=== PATIENT | male | born 1960 | race Caucasian/White ===

== ENCOUNTER 2017-02-19 20:00 | Emergency (ER) | payer MEDICAID ==
[2017-02-19 20:08] VITALS: RESP 18; TEMP 98.2
[2017-02-19] MEDS ORDERED: PROPARACAINE 0.5% 15 ML OPHT DROP ONE (20:10)
[2017-02-19] MEDS ORDERED: PROPARACAINE 0.5% 15 ML OPHT DROP OP ONE (20:13)
[2017-02-19] MEDS ORDERED: FLUORESCEIN SODIUM 1 MG STRIP OP ONE (20:15)
--- NOTE | 2017-02-19 20:20 | EDPHY ---
General - History Smoking Status: Heavy smoker Narrative: CHIEF COMPLAINT: Eye pain and redness HISTORY OF PRESENT ILLNESS: Patient was working with boxes today he thought he felt something pop up into the right eye. He kept doing he was doing an notice some gradual onset of pain and redness in the right eye. Moderate to severe discomfort and redness of the right eye. No changes in vision. No photophobia. Some associated pain in the left eye now. No history of autoimmune disease or sexually transmitted infections. No use of contacts or corrective lenses. No difficulty seeing. No diplopia. Symptoms are improving here in the emergency department. No other associated complaints or modifying factors. He is up-to-date on his tetanus. REVIEW OF SYSTEMS: Ten systems reviewed and are negative unless otherwise noted in the HPI PERTINENT MEDICAL HISTORY: EXAMINATION General Appearance: Alert, no distress Head: normocephalic, atraumatic Eyes: Pupils equal, round and reactive to light. There is moderate injection of the right conjunctiva. Minimal injection of the left conjunctiva. Visual freire intact. No hyphema. ENT, Mouth: Mucous membranes moist Neck: Normal inspection, supple, non-tender Respiratory: Lungs are clear to auscultation Skin: Warm and dry, no rash Extremities: Nontender, no pedal edema Psychiatric: Mood and affect normal SLIT LAMP: There is mild fluorescein uptake on the right eye 3:00 position and the cornea. This is next to a embedded foreign body. This was retrieved with a sterile swab with sterile saline. This was a would like substance. There was no rust ring after removal. No uptake elsewhere. Óscar-Pen revealed a pressure of 30 and 34 in the right eye. 01/08/2025 in the left eye. DIFFERENTIAL DIAGNOSES: Including but not limited to acute conjunctivitis, foreign body, conjunctival abrasion, corneal abrasion, iritis MDM: 8:20 p.m. Acute conjunctivitis of the right eye with minimal conjunctivitis of the left eye. I will proceed with fluorescein stain of the eye. His visual freire are intact. He is tolerating light. I do not suspect iritis as there is no intolerance of light, and no direct or consensual pain with exposure to light. 9:10 p.m. Acute conjunctivitis with foreign body of the right cornea and corneal abrasion. This was removed. There was no rust ring after removal. Examination of the substance appeared to be within or cardboard type substance. The eye was then irrigated with sterile saline. I did discuss the case with Ophthalmology as noted below. I will place him on erythromycin at the recommendation of corporate technical recruiter. I will discharge him home with instructions to contact Ophthalmology in the morning for evaluation tomorrow. He is to return to the emergency department tomorrow if they are unable to see him in the office. Patient is comfortable with this plan and discharged home stable condition. Ophthalmology consult: Dr. Camp at 9:20 p.m. Case discussed with Dr. Camp. He recommends antibiotic ointment. He does not recommend ophthalmic steroids. He has arranged for the patient to be seen at 8: 00 a.m. tomorrow at their [address] location. The phone number is . He has an appointment at 8:00 a.m. with . I have followed his recommendations and provided erythromycin ointment here. He is to take this home and apply another dose in the morning before his appointment. Patient is comfortable with this plan. SUPERVISION: This patient was independently evaluated without direct examination by the attending physician. Case was discussed with attending physician. (Blayne Nichols) Medical Decision Making: I did not see this patient while he was in the emergency department. However his care was discussed with the PA while the patient was in the department. I agree with treatment plan and management (Patrick Blair) - Objective Vital Signs: Initial Vital Signs Temperature (C) 36.8 C 02/19/17 20:05 Heart Rate 93 02/19/17 20:05 Respiratory Rate 18 02/19/17 20:05 Blood Pressure 173/92 H 02/19/17 20:05 O2 Sat (%) 98 02/19/17 20:05 O2 Delivery Mode Room Air Allergies/Adverse Reactions: No Known Allergies Allergy (Unverified 02/19/17 20:08) Home Medications: Medication Instructions Recorded Metoprolol Succinate 02/19/17 oxyCODONE HCL/ACETAMINOPHEN 1 each PO Q4-6PRN PRN #10 tablet 02/19/17 [Percocet 5-325 mg Tablet] Medications Given: Discontinued Medications Erythromycin (Erythromycin 0.5%) 1 sintia EACHEYE ONCE ONE Stop: 02/19/17 21:29 Last Admin: 02/19/17 21:52 Dose: 1 sintia Fluorescein Sodium ([id number]) 1 mg OP EDNOW ONE Stop: 02/19/17 20:16 Last Admin: 02/19/17 20:20 Dose: 1 mg Oxycodone/Acetaminophen (Percocet 5/325mg Prepack#4) 1 btl TAKEHOME EDNOW ONE Stop: 02/19/17 21:28 Last Admin: 02/19/17 22:03 Dose: 1 btl Proparacaine HCl (Alcaine 0.5%) 1 drops OP EDNOW ONE Stop: 02/19/17 20:14 Last Admin: 02/19/17 20:14 Dose: 1 drop Departure - Departure Disposition: Home, Routine, Self-Care Clinical Impression: Corneal abrasion, right, Foreign body in eyeball, right Condition: Good Instructions: Oxycodone/Acetaminophen (By mouth), Corneal Abrasion (ED) Additional Instructions: Antibiotic ointment as discussed. Follow up in the morning at 8:00 a.m. as discussed. Her appointment is with at [address] [place] [address] in [facility]. The phone number is [phone]. Return to ER for worsening pain or changes in vision overnight Referrals: NONE *PRIMARY CARE P,. [Primary Care Provider] - As per Instructions Wiliam Camp [Medical Doctor] - As per Instructions Prescriptions: oxyCODONE HCL/ACETAMINOPHEN [Percocet 5-325 mg Tablet] 1 each PO Q4-6PRN PRN # 10 tablet PRN Reason: Pain, Breakthrough
[2017-02-19] MEDS ORDERED: OXYCODONE/APAP 5/325MG PREPACK#4 BTL TAKEHOME ONE (21:27)
[2017-02-19] MEDS ORDERED: ERYTHROMYCIN 0.5% 1 GM OPHT.OINT EACHEYE ONE (21:28)
[2017-02-19 22:05] VITALS: BP 170/110; PULSE 90; O2SAT 96
== END 2017-02-19 22:03 | disposition home or self-care (01) ==
PROC: 08C8XZZ Extirpation of Matter from Right Cornea, External Approach (ICD-10-PCS; principal; 2017-02-19)
DX: T15.01XA Foreign body in cornea, right eye, initial encounter (principal); F17.200 Nicotine dependence, unspecified, uncomplicated; X58.XXXA Exposure to other specified factors, initial encounter; Y99.8 Other external cause status; Y93.89 Activity, other specified